=== PATIENT | female | born 1995 | race African-American/Black ===

== ENCOUNTER 2016-12-14 17:06 | Emergency (ER) | payer BC ==
[2016-12-14 17:22] VITALS: BP 111/95
--- NOTE | 2016-12-14 19:01 | EDM.PDOC ---
ED HPI GI/ABDOMINAL - General Chief Complaint: Abdominal Pain Stated Complaint: PAIN IN LOWER ABD/BACK Time Seen by Provider: 12/14/16 18:59 Source of Information: Reports: Patient History Limitations: Reports: No limitations - History of Present Illness INITIAL COMMENTS - FREE TEXT/NARRATIVE: c/o constipation past 6 days tried every OTC Rx but '0'. had stomach stapling done in [place] in September and been fine. appetite OK. - Related Data Allergies/ADRs: Allergies Allergy/AdvReac Type Severity Reaction Status Date / Time No Known Allergies Allergy Verified 12/14/16 17:22 Home Meds: Home Meds Docusate Sodium [Colace] 100 mg PO ONETIME 12/14/16 [History] Omeprazole Magnesium [Prilosec Otc] 20 mg PO DAILY 12/14/16 [History] Polyethylene Glycol 3350 [MiraLAX] 17 gm PO DAILY PRN 12/14/16 [History] Past Medical History HEENT History: Reports: Impaired vision Other HEENT History: wears glasses Cardiovascular History: Reports: None Respiratory History: Reports: None Gastrointestinal History: Reports: GERD Genitourinary History: Reports: None [employer]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 Musculoskeletal History: Reports: None Neurological History: Reports: None Psychiatric History: Reports: None Endocrine/Metabolic History: Reports: None Hematologic History: Reports: None Immunologic History: Reports: None Oncologic (Cancer) History: Reports: None Dermatologic History: Reports: None - Infectious Disease History Infectious Disease History: Reports: None - Past Surgical History Head Surgeries/Procedures: Reports: None HEENT Surgical History: Reports: Tonsillectomy Other GI Surgeries/Procedures: gastric sleeve in september 2016 Social & Family History - Tobacco Use Smoking Status *Q: Never Smoker Second Hand Smoke Exposure: No - Caffeine Use Caffeine Use: Reports: None - Recreational Drug Use Recreational Drug Use: No ED ROS GENERAL - Review of Systems Review Of Systems: ROS reveals no pertinent complaints other than HPI. ED EXAM, GI/ABD - Physical Exam Exam: See Below Exam Limited By: No limitations General Appearance: alert, WD/WN, mild distress, other (upset) Ears: hearing grossly normal Throat/Mouth: Normal voice, No airway compromise Head: atraumatic Neck: non-tender, full range of motion Respiratory/Chest: no respiratory distress Cardiovascular: regular rate, rhythm GI/Abdominal: soft, hyperactive bowel sounds, other (minimal ) Neurological: alert, oriented, normal cognition, normal gait, no motor/sensory deficits Psychiatric: normal affect, normal mood Skin Exam: Warm, Dry Lymphatic: no adenopathy Course - Vital Signs Last Recorded V/S: Last Vital Signs Temp 37.0 C 12/14/16 17:19 Pulse 81 12/14/16 17:19 Resp 20 12/14/16 17:19 BP 111/95 H 12/14/16 17:19 Pulse Ox 100 12/14/16 17:19 - Orders/Labs/Meds Orders: Active Orders 24 hr Category Date Time Status Enema [RC] ASDIRECTED Care 12/14/16 20:09 Active Labs: Laboratory Tests 12/14/16 12/14/16 Range/Units 18:50 18:50 WBC 5.8 (5.0-10.0) 10^3/uL RBC 4.83 (4.2-5.4) 10^6/uL Hgb 13.2 (12.0-16.0) g/dL Hct 41.0 (37.0-47.0) % MCV 84.9 (80-100) fL MCH 27.3 (27.0-34.0) pg MCHC 32.2 L (33.0-35.0) g/dL Plt Count 241 (150-450) 10^3/uL Neut % (Auto) 43.8 (42.2-75.2) % Lymph % (Auto) 42.9 (20.5-50.1) % [place] % (Auto) 12.0 H (2-8) % Eos % (Auto) 1.0 (1.0-3.0) % Baso % (Auto) 0.3 (0.0-1.0) % Add Manual Diff Yes Neutrophils % (Manual) 48 % Lymphocytes % (Manual) 40 % Monocytes % (Manual) 11 % Eosinophils % (Manual) 1 % Sodium 139 (135-145) mmol/L Potassium 3.4 L (3.6-5.0) mmol/L Chloride 104 (101-111) mmol/L Carbon Dioxide 26.0 (21.0-31.0) mmol/L Anion Gap 12.4 BUN 8 (7-18) mg/dL Creatinine 0.9 (0.6-1.3) mg/dL Est Cr Clr Drug Dosing 101.60 mL/min Estimated GFR (MDRD) > 60 BUN/Creatinine Ratio 8.88 Glucose 80 (74-105) mg/dL Calcium 9.5 (8.4-10.2) mg/dl Total Bilirubin 0.5 (0.2-1.0) mg/dL AST 20 (10-42) IU/L ALT 17 (10-60) IU/L Alkaline Phosphatase 52 (42-121) IU/L Total Protein 7.4 (6.7-8.2) g/dl Albumin 4.3 (3.2-5.5) g/dl Globulin 3.1 Albumin/Globulin Ratio 1.39 - Re-Assessments/Exams Free Text/Narrative Re-Assessment/Exam: 12/14/16 19:47 results discussed with Pt. will be going to floor for enema flush. 12/14/16 21:25 enema with results Departure - Departure Time of Disposition: 22:13 Disposition: Home, Self-Care 01 Condition: good Clinical Impression: Constipation by delayed colonic transit Abdominal pain Qualifiers: Abdominal location: periumbilical Qualified Code(s): R10.33 - Periumbilical pain Instructions: Constipation, Adult, [id number] Forms: ED Department Discharge Additional Instructions: 1) avoid solid foods next 48 hours 2) have liquids and soft foods 3) follow up at clinic or recheck as needed - My Orders Last 24 Hours: My Active Orders 12/14/16 20:09 Enema [RC] ASDIRECTED - Assessment/Plan Last 24 Hours: My Active Orders 12/14/16 20:09 Enema [RC] ASDIRECTED
[2016-12-14 19:24] LABS: CHLORIDE,CL 104 mmol/L (101-111); SODIUM,NA 139 mmol/L (135-145)
== END 2016-12-14 21:40 | disposition home or self-care (01) ==
LOC: DL.ED 17:06
DX: K59.01 Slow transit constipation (principal); K21.9 Gastro-esophageal reflux disease without esophagitis; Z98.890 Other specified postprocedural states
CPT/HCPCS: 36415; 74000; 80053; 85025; 99284

== ENCOUNTER 2018-02-02 14:37 | Emergency (ER) | payer BC ==
[2018-02-02 15:05] VITALS: BP 143/82
== END 2018-02-02 15:45 | disposition home health service (06) ==
LOC: DL.ED 14:37
DX: Z53.21 Procedure and treatment not carried out due to patient leaving prior to being seen by health care provider (principal)